=== PATIENT | male | born 1960 | race American Indian/Alaskan Native ===

== ENCOUNTER 2019-06-26 19:51 | Emergency (ER) | payer MEDICARE ==
[2019-06-26 20:08] VITALS: BP 134/88
--- NOTE | 2019-06-26 20:34 | Event Note ---
ED Screening Note Date of service: 06/26/19 Time: 20:33 ED Screening Note: This is a 59 y.o. M. that presents to the ER for staple removal from occipital scalp. Patient reports they where placed 2 weeks ago. Denies new symptoms. This initial assessment/diagnostic orders/clinical plan/treatment(s) is/are subject to change based on patients health status, clinical progression and re- assessment by fellow clinical providers in the ED. Further treatment and workup at subsequent clinical providers discretion. Patient/guardian urged not to elope from the ED as their condition may be serious if not clinically assessed and managed. Initial orders include:
--- NOTE | 2019-06-26 21:27 | Emergency Department Report ---
Suture/Staple Removal - [facility] Chief Complaint: Laceration/Recheck/Suture Stated Complaint: AUTUMN REMOVED HEAD Time Seen by Provider: 06/26/19 20:31 Wound Location: occipital scalp ED Review of Systems ROS: Stated complaint: AUTUMN REMOVED HEAD Other details as noted in HPI Constitutional: denies: chills, fever Eyes: denies: eye pain, eye discharge, vision change ENT: denies: ear pain, throat pain Respiratory: denies: cough, shortness of breath, wheezing Cardiovascular: denies: chest pain, palpitations Endocrine: no symptoms reported Gastrointestinal: denies: abdominal pain, nausea, diarrhea Genitourinary: denies: urgency, dysuria Musculoskeletal: denies: back pain, joint swelling, arthralgia Skin: as per HPI, other (autumn occipital scalp , edges well approximated no symptoms of infection ) Neurological: denies: headache, weakness, paresthesias Psychiatric: denies: anxiety, depression Hematological/Lymphatic: denies: easy bleeding, easy bruising ED Past Medical Hx - Past Medical History Previous Medical History?: Yes Hx Hypertension: Yes Hx Heart Attack/AMI: No Hx Congestive Heart Failure: No Hx Diabetes: No Hx Liver Disease: Yes (cirrhosis) Hx Sickle Cell Disease: No Hx Seizures: Yes (childhood) Hx Asthma: No Hx COPD: No Hx Dementia: No Hx HIV: No Additional medical history: Chronic Back Pain, erectile dysfunction - Surgical History Past Surgical History?: Yes Hx Cholecystectomy: Yes Additional Surgical History: Liver transplant - Social History Smoking Status: Never Smoker Substance Use Type: Alcohol - Medications Home Medications: Home Medications Medication Instructions Recorded Confirmed Last Taken Type Lactulose [Cephulac] 30 gm PO Q6HR #1 bottle 05/10/14 01/31/15 01/31/15 Rx Multivitamin Tab W-MINERAL 1 each PO QDAY #30 tablet 05/10/14 01/31/15 01/31/15 Rx [Multiple Vitamin/Mineral (Theragran M)] Furosemide [Lasix TAB] 40 mg PO DAILY #30 tablet 08/16/14 01/31/15 01/31/15 Rx NIFEdipine [NIFEdipine ER] 30 mg PO DAILY #30 tablet.er 08/16/14 01/31/15 01/31/15 Rx Propranolol [Inderal] 20 mg PO DAILY #30 tablet 08/16/14 01/31/15 01/31/15 Rx Spironolactone [Aldactone] 50 mg PO DAILY #30 tablet 08/16/14 01/31/15 01/31/15 Rx Lactulose [Cephulac] 20 gm FEEDTUBE Q6H oral.liqd 02/03/15 Unknown Rx traMADoL [Ultram] 50 mg PO Q6HR PRN #12 tablet 06/26/19 Unknown Rx Suture Removal Exam - Exam General: Vital signs noted. No distress. Alert and acting appropriately. sutures removed intact # no:12, bleeding, edges well approximated no symptoms of infection pt tolerated procedure with minimal distress. given wound care instructions. Wound: No Pathologic Erythema, No Tenderness, No Drainage, No Pus, No Wound Dehiscence Other Systems: All other systems reviewed and are unremarkable. ED Course Vital Signs 06/26/19 20:05 Temperature 97.9 F Pulse Rate 75 Respiratory 20 Rate Blood Pressure 134/88 O2 Sat by Pulse 99 Oximetry ED Recheck MDM - Differential Diagnosis Suture/Staple Removal - Medical Decision Making autumn removed intact. no symptoms of infection. pt dc'd to home in stable condition. Critical care attestation.: If time is entered above; I have spent that time in minutes in the direct care of this critically ill patient, excluding procedure time. ED Disposition Clinical Impression: Removal of autumn Disposition: DC-01 TO HOME OR SELFCARE Is pt being admited?: No Does the pt Need Aspirin: No Condition: Stable Instructions: Wound Infection (ED) Prescriptions: traMADoL [Ultram] 50 mg PO Q6HR PRN #12 tablet PRN Reason: Pain Referrals: STAR HARPER MD [Staff Physician] - 3-5 Days Forms: Work/School Release Form(ED) Time of Disposition: 21:35
== END 2019-06-26 22:12 | disposition home or self-care (01) ==
LOC: ED 19:51
DX: S01.01XD Laceration without foreign body of scalp, subsequent encounter (principal); G89.29 Other chronic pain; I10 Essential (primary) hypertension; Z90.49 Acquired absence of other specified parts of digestive tract; Z79.899 Other long term (current) drug therapy; X58.XXXD Exposure to other specified factors, subsequent encounter